=== PATIENT | male | born 1990 | race Hispanic/Latino ===

== ENCOUNTER 2016-11-26 07:27 | Day surgery (SDC) | payer OTHER ==
[~2016-11-26] VITALS: Ht 165.1 cm; Wt 63.5 kg
[~2016-11-26 07:27] MED LIST: 0.9% Sodium Chloride 1,000 ML IV SCH; Sodium Chloride LOK Flush 10 mL Syringe IV PRN; fentaNYL-PF 50 mCg/mL 2 mL Inj IVPUSH PRN
[2016-11-26 08:06] VITALS: BP 131/73; PULSE 75; O2SAT 100
[2016-11-26 08:36] VITALS: BP 128/67; PULSE 86; RESP 16; O2SAT 99
[2016-11-26 08:44] VITALS: BP 130/65; PULSE 75; RESP 16; O2SAT 97
--- NOTE | 2016-11-26 08:57 | ENDO ---
[address] [address] ENDOSCOPY PROCEDURE PATIENT: KELBY CURRIE : 1990 MR#: [id number] ADMIT: 11/26/2016 JOB ID: [id number] DATE: 11/26/2016 PROCEDURE: Colonoscopy. INDICATION: Left lower quadrant pain. Patient's ASA classification is one. Mallampati score is two. MEDICATIONS: 1. Versed 5 mg. 2. Fentanyl 100 mcg. INSTRUMENT USED: PCF-H180AL PREP QUALITY: Good. PROCEDURE DETAILS: After informed consent was obtained, the patient was brought in to the GI suite, where he was placed on oxygen via nasal cannula and monitored with continuous pulse oximeter, telemetry, and blood pressure monitoring. A time-out was performed. Then, he was placed in a left lateral decubitus position and medications were administered for sedation. Digital rectal exam was performed and was unremarkable. The colonoscope was then inserted into the rectum and advanced under direct visualization to the cecum, which was identified by the presence of the ileocecal valve and appendiceal orifice. Once the cecum was reached, the colonoscope was withdrawn back into the rectum as the mucosa and lumen were examined. In the rectum, retroflexion was performed. Following retroflexion, remaining air in the rectum was suctioned, and procedure was completed. FINDINGS: 1. Scattered diverticula were seen in the cecum and ascending colon as well as the left side of the colon. 2. The pain that the patient was experiencing was reproducible as we insufflated the left side of the colon. 3. Scattered diverticula, otherwise normal exam from rectum to cecum. RECOMMENDATIONS: 1. Stool softeners as needed. 2. Follow up in GI clinic as needed.
== END 2016-11-26 23:59 | disposition home or self-care (01) ==
LOC: END 07:27
PROVIDERS: ATTEND Internal Medicine Gastroenterology
DX: K57.30 Diverticulosis of large intestine without perforation or abscess without bleeding (principal); K59.00 Constipation, unspecified; R10.32 Left lower quadrant pain; K76.0 Fatty (change of) liver, not elsewhere classified; Z72.89 Other problems related to lifestyle
CPT/HCPCS: 45378; G0500; J2250; J3010; J7030